=== PATIENT | male | born 1980 | race Caucasian/White ===

== ENCOUNTER 2025-02-27 10:09 | Emergency (ER) | payer BC, SELFPAY ==
[2025-02-27 10:10] VITALS: BMI 26.6
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
[2025-02-27 11:00] VITALS: BP 121/73; PULSE 63; RESP 16; TEMP 36.9; O2SAT 97; BMI 26.1
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
== END 2025-02-27 12:27 | disposition home or self-care (01) ==
PROVIDERS: Emergency Provider Emergency Medicine
DX: S09.90XA Unspecified injury of head, initial encounter (principal); Y04.0XXA Assault by unarmed brawl or fight, initial encounter
CPT/HCPCS: 70450; 99284